=== PATIENT | female | born 1965 | race Native Hawaiian/Other Pacific Islander ===

== ENCOUNTER 2022-01-22 20:48 | Emergency (ER) | payer SELFPAY ==
[2022-01-22] MEDS ORDERED: Sodium Chloride 0.9% 10 ML Syringe FLUSH PRN (20:49)
[2022-01-22] MEDS ORDERED: fentaNYL 100 MCG/2 ML SDV IVPUSH ONE (20:49)
[2022-01-22] MEDS ORDERED: Sodium Chloride 0.9% 1,000 ML IV SCH (21:00)
[2022-01-22] MEDS ORDERED: Acetaminophen/HYDROcodone 325-5 MG Tab PO PRN (21:57)
== END 2022-01-23 07:14 | disposition home or self-care (01) ==
LOC: MERGE 20:48 → JP.ED 20:48
DX: S42.272A Torus fracture of upper end of left humerus, initial encounter for closed fracture (principal); W18.30XA Fall on same level, unspecified, initial encounter
CPT/HCPCS: 29105; 73030; 96374; 99283; A9270; J3010; J3490; J7030